=== PATIENT | female | born 1985 | race Caucasian/White ===

== ENCOUNTER → 2017-01-19 | Outpatient (REF) | payer BC ==
[~2017-01-19] MED LIST: IBUP80TA FT; PERCOCET PO; PRENTAB74 PO; TUMS500C PO
[2017-01-19 14:06] LABS: BASO % 0.3 % (0.0-1.0); EOS # 0.2 K/mm3 (0.0-0.50); EOS % 2.6 % (0.0-3.0); LARGE UNSTAINED CELL # 0.1 K/mm3 (0.0-0.4); LARGE UNSTAINED CELL % 1.2 % (0.0-4.0); LYMPH # 2.4 K/mm3 (1.5-4.5); LYMPH % 36.3 % (24.0-44.0); MEAN CORPUSCULAR HGB CONC 34.1 g/dl (32.0-36.5); MEAN CORPUSCULAR VOLUME 90.9 fl (80.0-96.0); MONO # 0.3 K/mm3 (0.0-0.8); NEUTROPHILS # 3.5 K/mm3 (1.8-7.7); NEUTROPHILS % 55.7 % (36.0-66.0); PLATELET COUNT, AUTOMATED 273 k/mm3 (150-450); RED CELL DISTRIBUTION WIDTH 12.7 % (11.5-14.5); WHITE BLOOD COUNT 6.4 K/mm3 (4.0-10.0)
[2017-01-19 14:28] LABS: ALBUMIN 3.5 GM/DL (3.2-5.2); ALBUMIN/GLOBULIN RATIO 0.97 (1.00-1.93); ALKALINE PHOSPHATASE 83 U/L (45-117); ALT/SGPT 32 U/L (12-78); ANION GAP 8 MEQ/L (8-16); AST/SGOT 17 U/L (15-37); BILIRUBIN,TOTAL 0.6 MG/DL (0.2-1.0); BLOOD UREA NITROGEN 13 MG/DL (7-18); CARBON DIOXIDE LEVEL 31 MEQ/L (21-32); CHLORIDE LEVEL 102 MEQ/L (98-107); CREATININE FOR GFR 0.77 MG/DL (0.55-1.02); GLOMERULAR FILTRATION RATE > 60.0 (>60); GLUCOSE, FASTING 75 MG/DL (70-105); SODIUM LEVEL 141 MEQ/L (136-145); TOTAL PROTEIN 7.1 GM/DL (6.4-8.2)
== END ==
LOC: M LAB REF 13:41
PROVIDERS: ATTEND Family Medicine
DX: R03.0 Elevated blood-pressure reading, without diagnosis of hypertension (principal); R94.6 Abnormal results of thyroid function studies

== ENCOUNTER → 2018-04-17 | Outpatient (REF) | payer BC ==
[2018-04-17 18:57] LABS: BASO % 0.1 % (0.0-1.0); EOS # 0.2 10^3/uL (0.0-0.50); EOS % 2.7 % (0.0-3.0); HEMATOCRIT 40.1 % (36.0-47.0); HEMOGLOBIN 12.9 g/dl (12.0-15.5); IMMATURE GRANULOCYTE % 0.1 % (0-3.0); LYMPH # 2.8 10^3/uL (1.5-4.5); LYMPH % 39.6 % (24.0-44.0); MEAN CORPUSCULAR HEMOGLOBIN 29.7 pg (27.0-33.0); MEAN CORPUSCULAR HGB CONC 32.2 g/dl (32.0-36.5); MEAN CORPUSCULAR VOLUME 92.4 fl (80.0-96.0); MONO # 0.4 10^3/uL (0.0-0.8); MONO % 5.9 % (0.0-5.0); NEUTROPHILS # 3.7 10^3/uL (1.8-7.7); NEUTROPHILS % 51.6 % (36.0-66.0); PLATELET COUNT, AUTOMATED 299 10^3/uL (150-450); RED BLOOD COUNT 4.34 10^6/uL (4.00-5.40); RED CELL DISTRIBUTION WIDTH 12.5 % (11.5-14.5); WHITE BLOOD COUNT 7.1 10^3/uL (4.0-10.0)
[2018-04-17 22:45] LABS: ALKALINE PHOSPHATASE 71 U/L (45-117); ALT/SGPT 29 U/L (12-78); ANION GAP 9 MEQ/L (8-16); AST/SGOT 14 U/L (7-37); BILIRUBIN,TOTAL 0.5 MG/DL (0.2-1.0); BLOOD UREA NITROGEN 15 MG/DL (7-18); CALCIUM LEVEL 9.1 MG/DL (8.5-10.1); CARBON DIOXIDE LEVEL 25 MEQ/L (21-32); CHLORIDE LEVEL 106 MEQ/L (98-107); CREATININE FOR GFR 0.79 MG/DL (0.55-1.30); FREE T4 0.93 NG/DL (0.76-1.46); GLOMERULAR FILTRATION RATE > 60.0 (>60); GLUCOSE, FASTING 84 MG/DL (70-100); POTASSIUM SERUM 4.2 MEQ/L (3.5-5.1); SODIUM LEVEL 140 MEQ/L (136-145); TOTAL PROTEIN 7.4 GM/DL (6.4-8.2); TRIGLYCERIDES LEVEL 168 MG/DL (<150)
[2018-04-18 00:05] LABS: ALBUMIN/GLOBULIN RATIO 1.18 (1.00-1.93); HDL CHOLESTEROL 54 MG/DL (>40)
[2018-04-18 00:50] LABS: CHOLESTEROL LEVEL 232 MG/DL (<200); CHOLESTEROL RISK RATIO 4.296 (<5); LDL CHOLESTEROL 144 MG/DL (<100); NON-HDL-C 178 MG/DL
[2018-04-18 01:24] LABS: ESTIMATED AVERAGE GLUCOSE 100 MG/DL (60-110); HEMOGLOBIN A1c 5.1 %
== END ==
LOC: M SFHCPLAZ 14:05
DX: Z13.220 Encounter for screening for lipoid disorders (principal); E66.9 Obesity, unspecified; G43.009 Migraine without aura, not intractable, without status migrainosus
CPT/HCPCS: 84443

== ENCOUNTER → 2018-10-05 | Outpatient (REF) | payer BC ==
[2018-10-10 08:06] LABS: HPV HYBRID CAPTURE II Negative (Negative)
== END ==
LOC: M LAB REF 13:13
PROVIDERS: ATTEND Advanced Practice Midwife
DX: Z12.4 Encounter for screening for malignant neoplasm of cervix (principal); N87.0 Mild cervical dysplasia
CPT/HCPCS: 87624; G0123

== ENCOUNTER → 2018-11-03 | Outpatient (REF) | payer BC ==
[2018-11-03 12:27] LABS: HEMOGLOBIN A1c 5.6 %
== END ==
LOC: M SFHCPLAZ 10:32
PROVIDERS: ATTEND Physician Assistant Medical
DX: G43.009 Migraine without aura, not intractable, without status migrainosus (principal)

== ENCOUNTER → 2018-11-07 | Outpatient (CLI) | payer BC ==
[~2018-11-07] MED LIST changes: +OXYC1TAB23 PO; -PERCOCET PO
--- NOTE | 2018-11-07 09:59 | REP ---
Duplex extremity venous ultrasound: Right lower extremity. History: Right ankle edema. Rule out DVT. Findings: The deep veins are anechoic and fully compressible from the groin to the popliteal fossa in the right lower extremity. Color flow imaging is homogeneous. Spectral Doppler interrogation demonstrates intact respiratory variation in flow and normal manual augmentation of flow. There is no evidence of deep vein thrombosis. Impression: Negative right lower extremity duplex venous ultrasound. No evidence of deep vein thrombosis. Electronically Signed by Reinaldo Spann MD 11/07/2018 09:50 A
== END ==
LOC: M RAD 09:29
PROVIDERS: ATTEND Physician Assistant Medical
DX: M25.471 Effusion, right ankle (principal)

== ENCOUNTER → 2019-03-13 | Outpatient (REF) | payer BC ==
[2019-03-13 14:24] LABS: ALBUMIN 3.8 GM/DL (3.2-5.2); ALT/SGPT 31 U/L (12-78); BILIRUBIN,TOTAL 0.6 MG/DL (0.2-1.0); BLOOD UREA NITROGEN 13 MG/DL (7-18); CALCIUM LEVEL 9.4 MG/DL (8.5-10.1); CARBON DIOXIDE LEVEL 28 MEQ/L (21-32); CHLORIDE LEVEL 105 MEQ/L (98-107); CREATININE FOR GFR 0.85 MG/DL (0.55-1.30); FREE T4 0.93 NG/DL (0.76-1.46); GLOMERULAR FILTRATION RATE > 60.0 (>60); GLUCOSE, FASTING 94 MG/DL (70-100); POTASSIUM SERUM 3.9 MEQ/L (3.5-5.1); SODIUM LEVEL 141 MEQ/L (136-145); TOTAL PROTEIN 7.4 GM/DL (6.4-8.2)
== END ==
LOC: M SFHCPLAZ 11:28
PROVIDERS: ATTEND Physician Assistant Medical
DX: F32.1 Major depressive disorder, single episode, moderate (principal)

== ENCOUNTER → 2019-07-16 | Outpatient (CLI) | payer BC ==
--- NOTE | 2019-07-16 13:59 | REPPI ---
REASON: Knee pain. COMPARISON: None. There is mild and medial compartmental marginal osteophytosis with slight medial compartmental narrowing. There is no acute fracture or destructive osseous lesion. IMPRESSION: Chronic changes as described above. Electronically Signed by Sid Jasso DO 07/16/2019 03:43 P
== END ==
LOC: M PLALAB 11:24
PROVIDERS: ATTEND Physician Assistant Medical
DX: M25.762 Osteophyte, left knee (principal)

== ENCOUNTER 2020-02-11 23:55 | Emergency (ER) | payer BC ==
[~2020-02-11] VITALS: Ht 165.1 cm; Wt 134.2 kg
[2020-02-12] MEDS ORDERED: AUGM875T28 PO (02:10)
[2020-02-12] MEDS ORDERED: IBUP80TA PO (02:10)
[2020-02-12] MEDS ORDERED: KETOROLAC 60MG 2ML VIAL IM ONE (02:15)
[2020-02-12] MEDS ORDERED: AUGMENTIN 875 MG TAB PO ONE (02:15)
[2020-02-12 02:34] VITALS: BP 144/88
== END 2020-02-12 02:35 | disposition home or self-care (01) ==
LOC: M ED 23:55
DX: K02.9 Dental caries, unspecified (principal); F41.9 Anxiety disorder, unspecified; F32.9 Major depressive disorder, single episode, unspecified
CPT/HCPCS: 96372; 99283; J1885

== ENCOUNTER → 2020-02-25 | Outpatient (REF) | payer BC ==
[~2020-02-25] MED LIST changes: +AUGM875T28 PO; +IBUP80TA PO
[2020-02-25 13:37] LABS: BASO % 0.2 % (0.0-1.0); EOS # 0.1 10^3/uL (0.0-0.5); EOS % 1.5 % (0.0-3.0); HEMATOCRIT 38.6 % (36.0-47.0); HEMOGLOBIN 12.7 g/dl (12.0-15.5); LYMPH # 2.9 10^3/uL (1.5-5.0); LYMPH % 33.6 % (24.0-44.0); MEAN CORPUSCULAR HEMOGLOBIN 30.5 pg (27.0-33.0); MEAN CORPUSCULAR HGB CONC 32.9 g/dl (32.0-36.5); MEAN CORPUSCULAR VOLUME 92.6 fl (80.0-96.0); MONO # 0.5 10^3/uL (0.0-0.8); MONO % 5.7 % (0.0-5.0); NEUTROPHILS % 58.4 % (36.0-66.0); PLATELET COUNT, AUTOMATED 273 10^3/uL (150-450); RED BLOOD COUNT 4.17 10^6/uL (4.00-5.40); WHITE BLOOD COUNT 8.6 10^3/uL (4.0-10.0)
[2020-02-25 14:05] LABS: ALBUMIN 3.7 GM/DL (3.2-5.2); ALT/SGPT 29 U/L (12-78); BILIRUBIN,TOTAL 0.5 MG/DL (0.2-1.0); BLOOD UREA NITROGEN 14 MG/DL (7-18); CALCIUM LEVEL 8.9 MG/DL (8.5-10.1); CARBON DIOXIDE LEVEL 31 MEQ/L (21-32); CHLORIDE LEVEL 104 MEQ/L (98-107); CHOLESTEROL LEVEL 242 MG/DL (<200); CHOLESTEROL RISK RATIO 4.172 (<5); FREE T4 0.93 NG/DL (0.76-1.46); GLOMERULAR FILTRATION RATE > 60.0 (>60); GLUCOSE, FASTING 87 MG/DL (70-100); HDL CHOLESTEROL 58 MG/DL (>40); LDL CHOLESTEROL 152 MG/DL (<100); NON-HDL-C 184 MG/DL; POTASSIUM SERUM 4.3 MEQ/L (3.5-5.1); SODIUM LEVEL 141 MEQ/L (136-145); TOTAL PROTEIN 7.3 GM/DL (6.4-8.2); TRIGLYCERIDES LEVEL 162 MG/DL (<150)
[2020-02-25 14:10] LABS: TOTAL 25(OH) VITAMIN D 20.6 NG/ML (30.0-100.0)
[2020-02-25 14:11] LABS: HEMOGLOBIN A1c 5.3 %
== END ==
LOC: M SFHCPLAZ 10:52
PROVIDERS: ATTEND Physician Assistant Medical
DX: L71.9 Rosacea, unspecified (principal); E66.9 Obesity, unspecified; E28.2 Polycystic ovarian syndrome; Z13.220 Encounter for screening for lipoid disorders

== ENCOUNTER 2020-09-02 19:32 | Emergency (ER) | payer BC ==
[~2020-09-02] VITALS: Ht 165.1 cm; Wt 136.9 kg
[2020-09-02] MEDS ORDERED: LABE100T4 PO (19:45)
[2020-09-02] MEDS ORDERED: METF-838 PO (19:45)
[2020-09-02] MEDS ORDERED: ESCI10TA16 PO (19:45)
--- OUTSIDE RECORDS SUMMARY | 2020-09-02 21:13 | CCD ---
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 Role Phone Jessie Llamas Unavailable PROBLEMS Type Condition ICD9-CM Code IHY50-JI Code Onset Dates Condition S tatus SNOMED Code Notes Problem Migraine without aura and without status migrain osus, not intractable G43.009 Active 517997422 Problem PCOS (polycystic ovarian syndrome) E28.2 Activ e 01470367 Problem Cervical cancer screening Z12.4 Active 027329 001 Problem Obesity (BMI 30-39.9) E66.9 Active 505507443 Problem Vitamin D insufficiency E55.9 Active 75637214 Problem Rosacea L71.9 Active 025290676 Problem Mixed hyperlipidemia E78.2 Active 905220954 Problem Lipid screening Z13.220 Active 540725426 Problem Current moderate episode of major depressive disorder, unspecified whether recurrent F32.1 Active 33014243 Problem Screening for colon cancer Z12.11 Active 78304 8001 Problem Breast cancer screening Z12.39 Active 95277962 1 Problem Carpal tunnel syndrome of right wrist G56.01 Ac tive [id number] ALLERGIES No Known Allergies ENCOUNTERS from 1985 to 2020-06-03 Encounter Location Date Provider Diagnosis [address] [address] Feb, Jessie Llamas Carpal tunnel syndrome of right wrist G5 6.01 ; PCOS (polycystic ovarian syndrome) E28.2 ; Current moderate episode of major depressive disorder, unspecified whether recurrent F32.1 ; Arthralgia of knee, left M25.562 ; Cough R05 ; Breast cancer screening Z12.39 ; Screening for colon cancer Z12.11 ; Rosacea L71.9 ; Obesity (BMI 30-39.9) E66.9 ; Lipid screening Z13.220 ; Vitamin D insufficiency E55.9 and Mixed hyperlipidemia E78.2 IMMUNIZATIONS No Information SOCIAL HISTORY Tobacco Use: Social History Observation Description Date Details (start date - stop date) Never Smoker Sex Assigned At : Social History Observation Description Sex Assigned At Unknown Education: Question Answer Notes Level of Education: Finished College Audit Question Answer Notes Total Score: 1 Interpretation: Alcohol Education Language: Question Answer Notes Languages spoken: Croatian Rastafari: Question Answer Notes Rastafari 08 Jew Sexual Hx: Question Answer Notes Had sex in the last 12 months (vaginal, oral, or anal)? Yes LMP: 04/08/18 Have you ever had an STD? No Prevention Strategies discussed: Other with Men only Use protection? No Drug and Alcohol Question Answer Notes Total Score: 0 Interpretation: No problems reported Alcohol Screening: Question Answer Notes Did you have a drink containing alcohol in the past year? Ye s Points 1 Interpretation Negative How often did you have six or more drinks on one occas ion in the past year? Never (0 points) How many drinks did you have on a typica l day when you were drinking in the past year? 1 or 2 (0 points) How often did you have a drink containing alcohol in t he past year? Monthly or less (1 point) Tobacco Use: Question Answer Notes Are you a: never smoker REASON FOR REFERRAL No Information VITAL SIGNS Weight 293.2 lbs Feb, Height 65 in Feb, BMI 48.79 kg/m2 Feb, Heart Rate 84 /min Feb, Respiratory Rate 18 /min Feb, Temperature 97.6 degrees Fahrenheit Feb, Oximetry 98% Ra Feb, Blood pressure systolic 116 mm Hg Feb, Blood pressure diastolic 84 mm Hg Feb, MEDICATIONS Medication SIG (Take, Route, Frequency, Duration) Start Date En d Date Status May Have - cockup wrist splint for rt. hand topically before bedtime for 999 days Feb, Active May Have - compression stockings 15mmhg topically Daily for 30 da ys Active Tylenol 8 Hour 650 MG 2 tablets as needed Orally every 8 hrs Active Ibuprofen 400 MG 1 tablet with food or milk as needed Ora lly Three times a day Active Metrogel 1 % 1 application to affected area Externall y Once a day for 30 day(s) Active MetFORMIN HCl ER 500 MG 1 tablet with evening meal O rally Once a day for 30 day(s) Active Vitamin D 25 MCG (1000 UT) 1 tablet Orally Once a day for 30 day(s) Feb, Active Labetalol HCl 100 MG 1 tablet Orally Twice a day for 90 day(s) A 2018 Active Lexapro 10 MG 1 tablet Orally Once a day for 30 day(s) Active PROCEDURES No Information RESULTS REASON FOR VISIT follow up - r/s of cx November appt MEDICAL (GENERAL) HISTORY Type Description Date Medical History migraines Medical History Elevated bp Medical History Depression Medical History PCOS Surgical History 2012 Surgical History 1 wisdom tooth extracted Hospitalization History surgery related Goals Section No Information Health Concerns No Information MEDICAL EQUIPMENT No Information MENTAL STATUS No Information FUNCTIONAL STATUS No Information ASSESSMENTS Encounter Date Diagnosis Notes Feb, PCOS (polycystic ovarian syndrome) (ICD- 10 - E28.2) Feb, Carpal tunnel syndrome of right wrist (I CD-10 - G56.01) Feb, Mixed hyperlipidemia (ICD-10 - E78.2) Feb, Arthralgia of knee, left (ICD-10 - M25.5 62) Feb, Current moderate episode of major depressive disorder, unspecified whether recurrent (ICD-10 - F32.1) Feb, Obesity (BMI 30-39.9) (ICD-10 - E66.9) Feb, Vitamin D insufficiency (ICD-10 - E55.9) Feb, Lipid screening (ICD-10 - Z13.220) Feb, Breast cancer screening (ICD-10 - Z12.39 ) Feb, Cough (ICD-10 - R05) Feb, Rosacea (ICD-10 - L71.9) Feb, Screening for colon cancer (ICD-10 - Z12 .11) PLAN OF TREATMENT Medication Medication Name Sig Start Date Stop Date May Have - cockup wrist splint for rt. 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 up 5lbs. 293 t odayn was 288 Vitamin D insufficiency start over the c ounter vit. D7 Vit. D 20.6 Mixed hyperlipidemia Will need to adjust diet., may need statin02/2020 FWG749/HDL 58, TG 162 Next Appt Details 4 Months f/u c SS, BW today Reason: Provider Name:Jessie Llamas, 2019-08 09:30:00 AM, [address] [place], [address], Insurance Providers Payer Name Payer Address Payer Phone Insured Name Patient Relati onship to Insured Coverage Start Date Coverage End Date [facility] [id number] [employer] [facility] ([place], [place]) [id number] [address]
--- OUTSIDE RECORDS SUMMARY | 2020-09-02 21:13 | CCD ---
Author Author [facility] Organization [facility] Address Unknown Phone Unavailable Support Name Relationship Address Phone SSV* Next Of Kin [address] [place] [id number] [facility] Next Of Kin [address] [place] [address] [place] [address] [facility]* [place] [address] ANTHONY OBRIEN Next Of Kin [address] [place], [place] [id number] CLAUDINE OBRIEN Next Of Kin [address] [place] [address] Re-disclosure Warning The records that you are about to access may contain information from federally-assisted alcohol or drug abuse programs. If such information is present, then the following federally mandated warning applies: This information has been disclosed to you from records protected by federal confidentiality rules (42 CFR part 2). The federal rules prohibit you from making any further disclosure of this information unless further disclosure is expressly permitted by the written consent of the person to whom it pertains or as otherwise permitted by 42 CFR part 2. A general authorization for the release of medical or other information is NOT sufficient for this purpose. The Federal rules restrict any use of the information to criminally investigate or prosecute any alcohol or drug abuse patient.The records that you are about to access may contain highly sensitive health information, the redisclosure of which is protected by Article 27-F of the [place] State Public Health law. If you continue you may have access to information: Regarding HIV / AIDS; Provided by facilities licensed or operated by the [facility] Office of Mental Health; or Provided by the [facility] Office for People With Developmental Disabilities. If such information is present, then the following [facility] mandated warning applies: This information has been disclosed to you from confidential records which are protected by state law. State law prohibits you from making any further disclosure of this information without the specific written consent of the person to whom it pertains, or as otherwise permitted by law. Any unauthorized further disclosure in violation of state law may result in a fine or [place] [facility] sentence or both. A general authorization for the release of medical or other information is NOT sufficient authorization for further disc losure. Family History Family Member Name Family Member Gender Family Member Status Date o f Status Description Data Source(s) Unknown Unknown Problem [facility] Unknown Male Problem MEDENT ([facility] Unknown Unknown Problem MEDENT ([facility]) Encounters Encounter Providers Location Date Indications Data Source(s ) Outpatient [address] [place] [phone] 02/25/2020 12:00:00 AM EDT eCW1 ([facility]) [address] [address] 01/18/2020 12:00:00 AM EDT eCW1 ([facility] [address] [place] [address] 12/18/2019 12:00:00 AM EDT eCW1 ([facility]) [address] [place] [address] 12/18/2019 12:00:00 AM EDT eCW1 ([facility]) [address] [place] [address] 11/12/2019 12:00:00 AM EDT eCW1 ([facility]) [address] [place] [address] 11/09/2019 12:00:00 AM EDT eCW1 ([facility]) [address] [place] [address] 08/13/2019 12:00:00 AM EST eCW1 ([facility]) [address] [address] 07/16/2019 12:00:00 AM EST eCW1 ([facility]) Medications Medication Brand Name Start Date Product Form Dose Route Admi nistrative Instructions Pharmacy Instructions Status Indications Reaction Description Data Source(s) Cholecalciferol 1000 UNT Oral Tablet Vitamin D 25 MCG (1000 UT) Vitamin D 25 MCG (1000 UT) 02/25/2020 12:00:00 AM EDT 1.0 {tablet} ac tive Vitamin D 25 MCG (1000 UT) eCW1 ([facility]) May Have - UNK 02/25/2020 12:00:00 AM EDT active May Have - eCW1 ([facility]) 5-325 mg 02/15/2020 12:00:00 AM EDT tablet 15 TAKE ONE TABLET BY MOUTH EVERY 6 HOURS NEEDED FOR PAIN * MAXIMUM DAILY DOSE = 3 TAKE ONE TABLET BY MOUTH EVERY 6 HOURS NEEDED FOR PAIN * MAXIMUM DAILY DOSE = 3 SOLD: 02/15/2020 [facility] 500 mg 02/15/2020 12:00:00 AM EDT tablet 28 TAKE ONE TABLET BY MOUTH EVERY 6 HOURS UNTIL GONE TAKE ONE TABLET BY MOUTH EVERY 6 HOURS UNTIL GONE SOLD : 02/15/2020 [facility] 800 mg 02/12/2020 12:00:00 AM EDT tablet 30 TAKE ONE TABLET BY MOUTH EVERY 6 HOURS NEEDED FOR PAIN TAKE ONE TABLET BY MOUTH EVERY 6 HOURS A S NEEDED FOR PAIN SOLD: 02/15/2020 [facility] 875-125 mg 02/12/2020 12:00:00 AM EDT tablet 20 TAKE ONE TABLET BY MOUTH TWO TIMES A DAY TAKE ONE TABLET BY MOUTH TWO TIMES A DAY SOLD: 02/15/2020 [facility] 500 mg 12/18/2019 12:00:00 AM EDT tablet extended release 24 hr 30 TAKE ONE TABLET BY MOUTH EVERY DAY WITH EVENING MEAL TAKE ONE TABLET BY MOUTH EVERY DAY WITH EVENING MEAL SOLD: 12/18/2019 [facility] 500 mg 12/18/2019 12:00:00 AM EDT tablet extended release 24 hr 30 TAKE ONE TABLET BY MOUTH EVERY DAY WITH EVENING MEAL TAKE ONE TABLET BY MOUTH EVERY DAY WITH EVENING MEAL SOLD: 03/10/2020 [facility] 100 mg 12/18/2019 12:00:00 AM EDT tablet 60 TAKE ONE TABLET BY MOUTH TWICE A DAY TAKE ONE TABLET BY MOUTH TWICE A DAY SOLD: 12/18/2019 [facility] Escitalopram 10 MG Oral Tablet ESCITALOPRAM OXALATE 04/13/2019 1 2:00:00 AM EDT tablet 30 TAKE ONE TABLET BY MOUTH EVERY D AY TAKE ONE TABLET BY MOUTH EVERY DAY SOLD: 02/15/2020 [facility] Insurance Providers Payer name Policy type / Coverage type Policy ID Covered republican ID Covered republican's relationship to helton Policy [place] Plan Information BCBS OF [facility] 306/806 [id number] SP [id number] [facility]/806 [id number] SP [id number] ANSI-Commercial [id number] BCBS [place] [facility] 302/307 [id number] SP [id number] ANSI-Commercial [id number] BCBS [facility] O 302/307 [id number] SP [id number] [facility] Health Maintenance Organization (HMO) [id number] Self [id number] [facility] [employer] Maintenance Organization (HMO) [id number] Self [id number] [facility] [employer] Maintenance Organization (HMO) [id number] Self [id number] [facility] Health Maintenance Organization (HMO) [id number] Self [id number] ANSI-Commercial [id number] ANSI-Commercial [id number] ANSI-Commercial [id number] BCBS JANET O [id number] SP [id number] [employer] [id number] SP [id number] BS Of [facility] Organization (O) [id number] Self [id number] [employer] [id number] SP [id number] BS Of [facility] Organization (O) [id number] Self [id number] BS Of [facility] Organization (O) [id number] Self [id number] BS Of [facility] Organization (O) [id number] Self [id number] [employer] [id number] Self [id number] [employer] Self O BLUE [id number] SP [id number] Problems, Conditions, and Diagnoses Code Display Name Description Problem Type Effective Dates Data Source(s) G56.01 732820362967172 Carpal tunnel syndrome of right wrist Problem 02/25/2020 12:00:00 AM EDT eCW1 ([facility]) E78.2 [id number] Mixed hyperlipidemia Problem 02/25/2020 12:0 0:00 AM EDT eCW1 ([facility]) E55.9 [id number] Vitamin D insufficiency Problem 02/25/2020 1 2:00:00 AM EDT eCW1 ([facility]) Z12.39 [id number] Breast cancer screening Problem 08/13/2019 1 2:00:00 AM EST eCW1 ([facility]) Z12.11 [id number] Screening for colon cancer Problem 0 12:00:00 AM EST eCW1 ([facility]) Z12.39 [id number] Breast cancer screening Problem 08/13/2019 1 2:00:00 AM EST eCW1 ([facility]) Z12.11 [id number] Screening for colon cancer Problem 0 12:00:00 AM EST eCW1 ([facility]) Results ID Date Data Source [id number] 08/26/2020 02:59:00 PM EST [facility] Name Value Range Interpretation Code Description Data Pati rce(s) Supporting Document(s) SARS coronavirus 2 RNA Not Detected [facility] [place] This lab was ordered by [facility] and reported by [facility]. ID Date Data Source [id number] 08/19/2020 11:30:00 AM EST [facility] Name Value Range Interpretation Code Description Data Pati rce(s) Supporting Document(s) SARS coronavirus 2 RNA Not Detected [facility] [place] This lab was ordered by [facility] and reported by [facility]. ID Date Data Source [id number] 08/12/2020 02:00:00 PM EST [facility] Name Value Range Interpretation Code Description Data Pati rce(s) Supporting Document(s) SARS coronavirus 2 RNA Not Detected [facility] [place] This lab was ordered by [facility] and reported by [facility]. ID Date Data Source [id number] 08/05/2020 10:36:00 AM EST [facility] Name Value Range Interpretation Code Description Data Pati rce(s) Supporting Document(s) SARS coronavirus 2 RNA [facility] This lab was ordered by [facility] and reported by [facility]. ID Date Data Source [id number] 07/29/2020 02:31:00 PM EST [facility] Name Value Range Interpretation Code Description Data Pati rce(s) Supporting Document(s) SARS coronavirus 2 RNA [facility] This lab was ordered by [facility] and reported by [facility]. ID Date Data Source [id number] 07/22/2020 09:15:00 AM EST [facility] Name Value Range Interpretation Code Description Data Pati rce(s) Supporting Document(s) SARS coronavirus 2 RNA [facility] This lab was ordered by [facility] and reported by [facility]. ID Date Data Source [id number] 07/15/2020 02:37:00 PM EST [facility] Name Value Range Interpretation Code Description Data Pati rce(s) Supporting Document(s) SARS coronavirus 2 RNA [facility] This lab was ordered by [facility] and reported by [facility]. ID Date Data Source [id number] 07/08/2020 02:00:00 PM EST [facility] Name Value Range Interpretation Code Description Data Pati rce(s) Supporting Document(s) SARS coronavirus 2 RNA [facility] This lab was ordered by [facility] and reported by [facility]. ID Date Data Source [id number] 07/01/2020 02:45:00 PM EST [facility] Name Value Range Interpretation Code Description Data Pati rce(s) Supporting Document(s) SARS coronavirus 2 RNA [facility] This lab was ordered by [facility] and reported by [facility]. ID Date Data Source [id number] 06/24/2020 11:42:00 AM EST [facility] Name Value Range Interpretation Code Description Data Pati rce(s) Supporting Document(s) SARS coronavirus 2 RNA [facility] This lab was ordered by [facility] and reported by [facility]. ID Date Data Source [id number] 06/17/2020 12:22:00 PM EST [facility] Name Value Range Interpretation Code Description Data Pati rce(s) Supporting Document(s) SARS coronavirus 2 RNA [facility] This lab was ordered by [facility] and reported by [facility]. ID Date Data Source [id number] 06/10/2020 02:01:00 PM EST [facility] Name Value Range Interpretation Code Description Data Pati rce(s) Supporting Document(s) SARS coronavirus 2 RNA [facility] This lab was ordered by [facility] and reported by [facility]. ID Date Data Source [id number] 06/03/2020 03:13:00 PM EDT [facility] Name Value Range Interpretation Code Description Data Pati rce(s) Supporting Document(s) SARS coronavirus 2 RNA [facility] This lab was ordered by [facility] and reported by [facility]. ID Date Data Source [id number] 05/27/2020 03:30:00 PM EDT [facility] Name Value Range Interpretation Code Description Data Pati rce(s) Supporting Document(s) SARS coronavirus 2 RNA [facility] This lab was ordered by [facility] and reported by [facility]. ID Date Data Source [id number] 05/20/2020 12:00:00 PM EDT [facility] Name Value Range Interpretation Code Description Data Pati rce(s) Supporting Document(s) SARS coronavirus 2 RNA [facility] This lab was ordered by [facility] and reported by [facility]. ID Date Data Source [id number] 05/13/2020 02:30:00 PM EDT [facility] Name Value Range Interpretation Code Description Data Pati rce(s) Supporting Document(s) SARS coronavirus 2 RNA [facility] This lab was ordered by [facility] and reported by [facility]. ID Date Data Source [id number] 05/06/2020 02:20:00 PM EDT [facility] Name Value Range Interpretation Code Description Data Pati rce(s) Supporting Document(s) SARS coronavirus 2 RNA [facility] This lab was ordered by [facility] and reported by [facility]. ID Date Data Source [id number] 04/29/2020 12:43:00 PM EDT [facility] Name Value Range Interpretation Code Description Data Pati rce(s) Supporting Document(s) SARS coronavirus 2 RNA [facility] This lab was ordered by [facility] and reported by [facility]. ID Date Data Source [id number] 04/17/2020 01:00:00 PM EDT [facility] Name Value Range Interpretation Code Description Data Pati rce(s) Supporting Document(s) SARS coronavirus 2 RNA [facility] This lab was ordered by [facility] and reported by [facility]. ID Date Data Source [id number] 04/01/2020 01:45:00 PM EDT [facility] Name Value Range Interpretation Code Description Data Pati rce(s) Supporting Document(s) SARS coronavirus 2 RNA [facility] This lab was ordered by [facility] and reported by [facility]. ID Date Data Source [id number] 02/26/2020 03:32:00 PM EDT [facility] Name Value Range Interpretation Code Description Data Pati rce(s) Supporting Document(s) SARS coronavirus 2 RNA [facility] This lab was ordered by [facility] and reported by [facility]. ID Date Data Source [id number] 02/25/2020 08:04:10 AM EDT eCW1 ([facility]) Name Value Range Interpretation Code Description Data Pati rce(s) Supporting Document(s) 20.6 eCW1 ([facility]) ID Date Data Source CBC with Differential 02/25/2020 08:04:03 AM EDT eCW1 ([facility]) Name Value Range Interpretation Code Description Data Pati rce(s) Supporting Document(s) 4.17 RED BLOOD COUNT eCW1 ([facility]) 8.6 WHITE BLOOD COUNT eCW1 ([facility]) 38.6 HEMATOCRIT eCW1 ([facility]) 92.6 MEAN CORPUSCULAR VOLUME eCW1 ( [facility]) 30.5 MEAN CORPUSCULAR HEMOGLOBIN eC W1 ([facility]) 12.7 HEMOGLOBIN eCW1 ([facility]) 32.9 MEAN CORPUSCULAR HGB CONC eCW1 ([facility]) 273 PLATELET COUNT, AUTOMATED eCW1 ([facility]) 12.3 RED CELL DISTRIBUTION WIDTH eC W1 ([facility]) 1.5 EOS % eCW1 ([facility]) 58.4 NEUTROPHILS % eCW1 ([facility]) 33.6 LYMPH % eCW1 ([facility]) 5.7 MONO % eCW1 ([facility]) 0.5 MONO # eCW1 ([facility]) 0.2 BASO % eCW1 ([facility]) 5.0 NEUTROPHILS # eCW1 ([facility]) 2.9 LYMPH # eCW1 ([facility]) 0.0 BASO # eCW1 ([facility]) 0.1 EOS # eCW1 ([facility]) ID Date Data Source [id number] 02/25/2020 08:03:57 AM EDT eCW1 ([facility]) Name Value Range Interpretation Code Description Data Pati rce(s) Supporting Document(s) Hemoglobin A1c/Hemoglobin.total in Blood 5.3 HEMOGLOBIN A1c eCW1 ([facility]) ID Date Data Source LIPID PANEL (CARDIAC RISK) 02/25/2020 08:03:52 AM EDT eCW1 ( [facility]) Name Value Range Interpretation Code Description Data Pati rce(s) Supporting Document(s) Cholesterol in HDL [Moles/volume] in Serum or Plasma 58 HDL CHOLESTEROL eCW1 ([facility]) Triglyceride [Mass/volume] in Serum or Plasma by calculation 162 TRIGLYCERIDES LEVEL eCW1 ([facility]) Cholesterol [Moles/volume] in Serum or Plasma 242 CHOLESTEROL LEVEL eCW1 ([facility]) Cholesterol in LDL [Mass/volume] in Serum or Plasma by calculation 152 LDL CHOLESTEROL eCW1 ([facility]) 184 NON-HDL-C eCW1 ([facility]) 4.172 CHOLESTEROL RISK RATIO eCW1 ([facility]) ID Date Data Source FREE T4 & TSH PANEL 02/25/2020 08:03:45 AM EDT eCW1 ([facility]) Name Value Range Interpretation Code Description Data Pati rce(s) Supporting Document(s) 0.93 FREE T4 eCW1 ([facility]) 1.710 THYROID STIMULATING HORMONE eC W1 ([facility]) ID Date Data Source Comprehensive Metabolic Profile (CMP) 02/25/2020 08:03:39 AM EDT eCW1 ([facility]) Name Value Range Interpretation Code Description Data Pati rce(s) Supporting Document(s) 87 GLUCOSE, FASTING eCW1 ([facility]) > 60.0 GLOMERULAR FILTRATION RATE eCW 1 ([facility]) 141 SODIUM LEVEL eCW1 ([facility]) 0.80 CREATININE FOR GFR eCW1 ([facility]) 14 BLOOD UREA NITROGEN eCW1 ([facility]) 8.9 CALCIUM LEVEL eCW1 ([facility]) 31 CARBON DIOXIDE LEVEL eCW1 ([facility]) 104 CHLORIDE LEVEL eCW1 ([facility]) 4.3 POTASSIUM SERUM eCW1 ([facility]) 16 AST/SGOT eCW1 ([facility]) 68 ALKALINE PHOSPHATASE eCW1 ([facility]) 29 ALT/SGPT eCW1 ([facility]) 7.3 TOTAL PROTEIN eCW1 ([facility]) 3.7 ALBUMIN eCW1 ([facility]) 0.5 BILIRUBIN,TOTAL eCW1 ([facility]) 1.0 ALBUMIN/GLOBULIN RATIO eCW1 ([facility]) ID Date Data Source [id number] 02/19/2020 03:49:00 PM EDT [facility] Name Value Range Interpretation Code Description Data Pati rce(s) Supporting Document(s) SARS coronavirus 2 RNA [facility] This lab was ordered by [facility] and reported by [facility]. ID Date Data Source [id number] 02/12/2020 03:19:00 PM EDT [facility] Name Value Range Interpretation Code Description Data Pati rce(s) Supporting Document(s) SARS coronavirus 2 RNA [facility] This lab was ordered by [facility] and reported by [facility]. ID Date Data Source [id number] 02/05/2020 05:30:00 AM EDT [facility] Name Value Range Interpretation Code Description Data Pati rce(s) Supporting Document(s) SARS CORONAVIRUS 2 RNA [facility] This lab was ordered by [facility] and reported by [facility]. ID Date Data Source [id number] 01/29/2020 05:30:00 AM EDT [facility] Name Value Range Interpretation Code Description Data Pati rce(s) Supporting Document(s) SARS CORONAVIRUS 2 RNA [facility] This lab was ordered by [facility] and reported by [facility]. ID Date Data Source [id number] 01/22/2020 11:49:00 AM EDT [facility] Name Value Range Interpretation Code Description Data Pati rce(s) Supporting Document(s) SARS CORONAVIRUS 2 RNA [facility] This lab was ordered by [facility] and reported by [facility]. ID Date Data Source [id number] 01/15/2020 01:20:00 PM EDT [facility] Name Value Range Interpretation Code Description Data Pati rce(s) Supporting Document(s) SARS CORONAVIRUS 2 RNA [facility] This lab was ordered by [facility] and reported by [facility]. ID Date Data Source [id number] 01/11/2020 02:07:00 PM EDT [facility] Name Value Range Interpretation Code Description Data Pati rce(s) Supporting Document(s) SARS CORONAVIRUS 2 RNA [facility] This lab was ordered by [facility] and reported by [facility]. ID Date Data Source [id number] 01/08/2020 03:32:00 PM EDT [facility] Name Value Range Interpretation Code Description Data Pati rce(s) Supporting Document(s) SARS CORONAVIRUS 2 RNA [facility] This lab was ordered by [facility] and reported by [facility]. ID Date Data Source [id number] 01/04/2020 03:09:00 PM EDT [facility] Name Value Range Interpretation Code Description Data Pati rce(s) Supporting Document(s) SARS CORONAVIRUS 2 RNA [facility] This lab was ordered by [facility] and reported by [facility]. ID Date Data Source [id number] 01/02/2020 01:00:00 PM EDT [facility] Name Value Range Interpretation Code Description Data Pati rce(s) Supporting Document(s) SARS CORONAVIRUS 2 RNA [facility] This lab was ordered by [facility] and reported by [facility]. ID Date Data Source [id number] 12/27/2019 03:06:00 PM EDT [facility] Name Value Range Interpretation Code Description Data Pati rce(s) Supporting Document(s) SARS CORONAVIRUS 2 RNA [facility] This lab was ordered by [facility] and reported by [facility]. ID Date Data Source [id number] 12/24/2019 05:30:00 AM EDT [facility] Name Value Range Interpretation Code Description Data Pati rce(s) Supporting Document(s) SARS CORONAVIRUS 2 RNA [facility] This lab was ordered by [facility] and reported by [facility]. Procedure Social History Code Duration Value Status Description Data Source(s ) Smoking 02/25/2020 12:00:00 AM EDT Never Smoker completed Never S harmeet eCW1 ([facility]) Vital Signs ID Date Data Source UNK Name Value Range Interpretation Code Description Data Source(s) Diastolic blood pressure 84 mm[Hg] 84 mm[Hg] eCW1 ([facility]) Systolic blood pressure 116 mm[Hg] 116 mm[Hg] e CW1 ([facility]) Body temperature 97.6 [degF] 97.6 [degF] eCW1 ( [facility]) Respiratory rate 18 /min 18 /min eCW1 ([facility]) Heart rate 84 /min 84 /min eCW1 ([facility]) Body mass index (BMI) [Ratio] 48.79 kg/m2 48.79 kg/m2 eCW1 ([facility]) Body height 65 [in_i] 65 [in_i] eCW1 ([facility]) Body weight 293.2 [lb_av] 293.2 [lb_av] eCW1 ([facility]) Diastolic blood pressure 80 mm[Hg] 80 mm[Hg] eCW1 ([facility]) Systolic blood pressure 114 mm[Hg] 114 mm[Hg] e CW1 ([facility]) Body temperature 98.0 [degF] 98.0 [degF] eCW1 ( [facility]) Respiratory rate 17 /min 17 /min eCW1 ([facility]) Heart rate 94 /min 94 /min eCW1 ([facility]) Body mass index (BMI) [Ratio] 47.02 kg/m2 47.02 kg/m2 eCW1 ([facility]) Body height 65 [in_us] 65 [in_us] eCW1 ([facility]) Body weight Measured 282.6 [lb_av] 282.6 [lb_av ] eCW1 ([facility]) Diastolic blood pressure 80 mm[Hg] 80 mm[Hg] eCW1 ([facility]) Systolic blood pressure 128 mm[Hg] 128 mm[Hg] e CW1 ([facility]) Body temperature 97.5 [degF] 97.5 [degF] eCW1 ( [facility]) Respiratory rate 18 /min 18 /min eCW1 ([facility]) Heart rate 95 /min 95 /min eCW1 ([facility]) Body mass index (BMI) [Ratio] 46.82 kg/m2 46.82 kg/m2 eCW1 ([facility]) Body height 65 [in_us] 65 [in_us] eCW1 ([facility]) Body weight Measured 281.4 [lb_av] 281.4 [lb_av ] eCW1 ([facility]) Patient Treatment Plan of Care Planned Activity Planned Date Details Description Data Source (s) Cholecalciferol 1000 UNT Oral Tablet 02/25/2020 12:00:00 AM EDT eCW1 ([facility]) December Have - 02/25/2020 12:00:00 AM EDT e CW1 ([facility])
--- OUTSIDE RECORDS SUMMARY | 2020-09-02 21:18 | CCD ---
Author Author [facility] Organization [facility] Address Unknown Phone Unavailable Support Name Relationship Address Phone SSV* Next Of Kin [address] [place] [id number] [facility] Next Of Kin [address] [place] [address] [place] [address] RUST* [place] [address] ANTHONY OBRIEN Next Of Kin [address] [place], [place] [id number] CLAUDINE OBRIEN Next Of Yonny [address] [place] [address] Re-disclosure Warning The records that you are [...] is protected by Article 27-F of the [place] State Public Health law. If you continue you may have access to information: Regarding HIV / AIDS; Provided by facilities licensed or operated by the [facility] Office of Mental Health; or Provided by the [facility] Office for People With Developmental Disabilities. If such information is present, then the following [facility] mandated warning applies: This information has [...] law may result in a fine or group home sentence or both. A general authorization for the release of medical or other information is NOT sufficient authorization for further disc losure. Family History Family Member Name Family Member Gender Family Member Status Date o f Status Description Data Source(s) Unknown Unknown Problem [facility] Unknown Male Problem MEDENT ([facility] Unknown Unknown Problem MEDENT ([facility]) Encounters Encounter Providers Location Date Indications Data Source(s ) Outpatient [address] [place] [phone] 02/25/2020 12:00:00 AM EDT eCW1 ([facility]) [address] [address] 01/18/2020 12:00:00 AM EDT eCW1 ([facility]) [address] [place] [address] 12/18/2019 12:00:00 AM EDT eCW1 ([facility]) [address] [place] [address] 12/18/2019 12:00:00 AM EDT eCW1 ([facility]) [address] [place] [address] 11/12/2019 12:00:00 AM EDT eCW1 ([facility]) [address] [place] [address] 11/09/2019 12:00:00 AM EDT eCW1 ([facility]) [address] [place] [address] 08/13/2019 12:00:00 AM EST eCW1 ([facility]) [address] [place] [address] 07/16/2019 12:00:00 AM EST eCW1 ([facility]) Medications Medication Brand Name Start Date Product Form Dose Route Admi nistrative Instructions Pharmacy Instructions Status Indications Reaction Description Data Source(s) Cholecalciferol 1000 UNT Oral Tablet Vitamin D 25 MCG (1000 UT) Vitamin D 25 MCG (1000 UT) 02/25/2020 12:00:00 AM EDT 1.0 {tablet} ac tive Vitamin D 25 MCG (1000 UT) eCW1 ([facility]) May Have - UNK 02/25/2020 12:00:00 AM EDT active May Have - eCW1 ([facility]) 5-325 mg 02/15/2020 12:00:00 AM EDT [...] type / Coverage type Policy ID Covered democrat ID Covered democrat's relationship to helton Policy [place] Plan Information [employer] [place] [facility] 306/806 [id number] SP [id number] [employer] [place] WAT[place] 306/806 [id number] SP [id number] ANSI-Commercial [id number] [place] O 302/307 [id number] SP [id number] ANSI-Commercial [id number] [place] O 302/307 [id number] SP [id number] [facility] Health Maintenance Organization (HMO) [id number] Self [id number] [facility] Maintenance Organization (HMO) [id number] Self [id number] [facility] Maintenance Organization (HMO) [id number] Self [id number] [facility] Maintenance Organization (HMO) [id number] Self [id number] ANSI-Commercial [id number] ANSI-Commercial [id number] ANSI-Commercial [id number] BCBS JANET HMO [id number] SP [id number] [employer] PLAN [id number] SP [id number] BS Of [facility] Organization (O) [id number] Self [id number] [employer] PL[employer] [id number] SP [id number] BS Of [facility] Organization (O) [id number] Self [id number] BS Of [facility] Organization (O) [id number] Self [id number] BS Of [facility] Organization (O) [id number] Self [id number] [employer] [id number] Self [id number] [employer] Self O BLUE [id number] Problems, Conditions, and Diagnoses Code Display Name Description Problem Type Effective Dates Data Source(s) G56.01 [id number] Carpal tunnel syndrome of right wrist Problem 02/25/2020 12:00:00 AM EDT eCW1 ([facility]) E78.2 [id number] Mixed hyperlipidemia Problem 02/25/2020 12:0 0:00 AM EDT eCW1 ([facility]) E55.9 [id number] Vitamin D insufficiency Problem 02/25/2020 1 2:00:00 AM EDT eCW1 ([facility]) Z12.39 [id number] Breast cancer screening Problem 08/13/2019 1 2:00:00 AM EST eCW1 ([facility]) Z12.11 [id number] Screening for colon cancer Problem 0 12:00:00 AM EST eCW1 ([facility]) Z12.39 [id number] Breast cancer screening Problem 08/13/2019 1 2:00:00 AM EST eCW1 ([facility]) Z12.11 [id number] Screening for colon cancer Problem 0 12:00:00 AM EST eCW1 ([facility]) Results ID Date Data Source [id number] 08/26/2020 02:59:00 PM EST [facility] Name Value Range Interpretation Code Description Data Pati rce(s) Supporting Document(s) SARS coronavirus 2 RNA Not Detected [facility] This lab was ordered by [facility] and reported by [facility]. ID Date Data Source [id number] 08/19/2020 11:30:00 AM EST [facility] Name Value Range Interpretation Code Description Data Pati rce(s) Supporting Document(s) SARS coronavirus 2 RNA Not Detected [facility] [place] This lab was ordered by [facility] and reported by [facility]. ID Date Data Source [id number] 08/12/2020 02:00:00 PM EST [facility] Name Value Range Interpretation Code Description Data Pati rce(s) Supporting Document(s) SARS coronavirus 2 RNA Not Detected [facility] [place] This lab was ordered by [facility] and reported by [facility]. ID Date Data Source [id number] 08/05/2020 10:36:00 AM EST [facility] Name Value Range Interpretation Code Description Data Pati rce(s) Supporting Document(s) SARS coronavirus 2 RNA [facility] This lab was ordered by [facility] and reported by [facility]. ID Date Data Source [id number] 07/29/2020 02:31:00 PM EST [facility] Name Value Range Interpretation Code Description Data Pati rce(s) Supporting Document(s) SARS coronavirus 2 RNA [facility] This lab was ordered by [facility] and reported by [facility]. ID Date Data Source [id number] 07/22/2020 09:15:00 AM EST [facility] Name Value Range Interpretation Code Description Data Pati rce(s) Supporting Document(s) SARS coronavirus 2 RNA [facility] This lab was ordered by [facility] and reported by [facility]. ID Date Data Source [id number] 07/15/2020 02:37:00 PM EST [facility] Name Value Range Interpretation Code Description Data Pati rce(s) Supporting Document(s) SARS coronavirus 2 RNA [facility] This lab was ordered by [facility] and reported by [facility]. ID Date Data Source [id number] 07/08/2020 02:00:00 PM EST [facility] Name Value Range Interpretation Code Description Data Pati rce(s) Supporting Document(s) SARS coronavirus 2 RNA [facility] This lab was ordered by [facility] and reported by [facility]. ID Date Data Source [id number] 07/01/2020 02:45:00 PM EST [facility] Name Value Range Interpretation Code Description Data Pati rce(s) Supporting Document(s) SARS coronavirus 2 RNA [facility] This lab was ordered by [facility] and reported by [facility]. ID Date Data Source [id number] 06/24/2020 11:42:00 AM EST [facility] Name Value Range Interpretation Code Description Data Pati rce(s) Supporting Document(s) SARS coronavirus 2 RNA [facility] This lab was ordered by [facility] and reported by [facility]. ID Date Data Source [id number] 06/17/2020 12:22:00 PM EST [facility] Name Value Range Interpretation Code Description Data Pati rce(s) Supporting Document(s) SARS coronavirus 2 RNA [facility] This lab was ordered by [facility] and reported by [facility]. ID Date Data Source [id number] 06/10/2020 02:01:00 PM EST [facility] Name Value Range Interpretation Code Description Data Pati rce(s) Supporting Document(s) SARS coronavirus 2 RNA [facility] This lab was ordered by [facility] and reported by [facility]. ID Date Data Source [id number] 06/03/2020 03:13:00 PM EDT [facility] Name Value Range Interpretation Code Description Data Pati rce(s) Supporting Document(s) SARS coronavirus 2 RNA [facility] This lab was ordered by [facility] and reported by [facility]. ID Date Data Source [id number] 05/27/2020 03:30:00 PM EDT [facility] Name Value Range Interpretation Code Description Data Pati rce(s) Supporting Document(s) SARS coronavirus 2 RNA [facility] This lab was ordered by [facility] and reported by [facility]. ID Date Data Source [id number] 05/20/2020 12:00:00 PM EDT [facility] Name Value Range Interpretation Code Description Data Pati rce(s) Supporting Document(s) SARS coronavirus 2 RNA [facility] This lab was ordered by [facility] and reported by [facility]. ID Date Data Source [id number] 05/13/2020 02:30:00 PM EDT [facility] Name Value Range Interpretation Code Description Data Pati rce(s) Supporting Document(s) SARS coronavirus 2 RNA [facility] This lab was ordered by [facility] and reported by [facility]. ID Date Data Source [id number] 05/06/2020 02:20:00 PM EDT [facility] Name Value Range Interpretation Code Description Data Pati rce(s) Supporting Document(s) SARS coronavirus 2 RNA [facility] This lab was ordered by [facility] and reported by [facility]. ID Date Data Source [id number] 04/29/2020 12:43:00 PM EDT [facility] Name Value Range Interpretation Code Description Data Pati rce(s) Supporting Document(s) SARS coronavirus 2 RNA [facility] This lab was ordered by [facility] and reported by [facility]. ID Date Data Source [id number] 04/17/2020 01:00:00 PM EDT [facility] Name Value Range Interpretation Code Description Data Pati rce(s) Supporting Document(s) SARS coronavirus 2 RNA [facility] This lab was ordered by [facility] and reported by [facility]. ID Date Data Source [id number] 04/01/2020 01:45:00 PM EDT [facility] Name Value Range Interpretation Code Description Data Pati rce(s) Supporting Document(s) SARS coronavirus 2 RNA [facility] This lab was ordered by [facility] and reported by [facility]. ID Date Data Source [id number] 02/26/2020 03:32:00 PM EDT [facility] Name Value Range Interpretation Code Description Data Pati rce(s) Supporting Document(s) SARS coronavirus 2 RNA [facility] This lab was ordered by [facility] and reported by [facility]. ID Date Data Source [id number] 02/25/2020 08:04:10 AM EDT eCW1 ([facility]ending sale to [facility]) Name Value Range Interpretation Code Description Data Pati rce(s) Supporting Document(s) 20.6 eCW1 ([facility]) ID Date Data Source CBC with Differential 02/25/2020 08:04:03 AM EDT eCW1 ([facility]) Name Value Range Interpretation Code Description Data Pati rce(s) Supporting Document(s) 4.17 RED BLOOD COUNT eCW1 ([facility]) 8.6 WHITE BLOOD COUNT eCW1 ([facility]ending [facility] to [facility]) 38.6 HEMATOCRIT eCW1 ([facility], 1928–1983) 92.6 MEAN CORPUSCULAR VOLUME eCW1 ( [facility]) 30.5 MEAN CORPUSCULAR HEMOGLOBIN eC W1 ([facility]) 12.7 HEMOGLOBIN eCW1 ([facility], 1928–1983) 32.9 MEAN CORPUSCULAR HGB CONC eCW1 ([facility]) 273 PLATELET COUNT, AUTOMATED eCW1 ([facility]) 12.3 RED CELL DISTRIBUTION WIDTH eC W1 ([facility]) 1.5 EOS % eCW1 ([facility]) 58.4 NEUTROPHILS % eCW1 ([facility]) 33.6 LYMPH % eCW1 ([facility]) 5.7 MONO % eCW1 ([facility]) 0.5 MONO # eCW1 ([facility]) 0.2 BASO % eCW1 ([facility]) 5.0 NEUTROPHILS # eCW1 ([facility]) 2.9 LYMPH # eCW1 ([facility]) 0.0 BASO # eCW1 ([facility]) 0.1 EOS # eCW1 ([facility]) ID Date Data Source [id number] 02/25/2020 08:03:57 AM EDT eCW1 ([facility]) Name Value Range Interpretation Code Description Data Pati rce(s) Supporting Document(s) Hemoglobin A1c/Hemoglobin.total in Blood 5.3 HEMOGLOBIN A1c eCW1 ([facility]) ID Date Data Source LIPID PANEL (CARDIAC RISK) 02/25/2020 08:03:52 AM EDT eCW1 ( [facility]) Name Value Range Interpretation Code Description Data Pati rce(s) Supporting Document(s) Cholesterol in HDL [Moles/volume] in Serum or Plasma 58 HDL CHOLESTEROL eCW1 ([facility]) Triglyceride [Mass/volume] in Serum or Plasma by calculation 162 TRIGLYCERIDES LEVEL eCW1 ([facility]) Cholesterol [Moles/volume] in Serum or Plasma 242 CHOLESTEROL LEVEL eCW1 ([facility]) Cholesterol in LDL [Mass/volume] in Serum or Plasma by calculation 152 LDL CHOLESTEROL eCW1 ([facility]) 184 NON-HDL-C eCW1 ([facility]) 4.172 CHOLESTEROL RISK RATIO eCW1 ([facility]) ID Date Data Source FREE T4 & TSH PANEL 02/25/2020 08:03:45 AM EDT eCW1 ([facility]) Name Value Range Interpretation Code Description Data Pati rce(s) Supporting Document(s) 0.93 FREE T4 eCW1 ([facility]) 1.710 THYROID STIMULATING HORMONE eC W1 ([facility]) ID Date Data Source Comprehensive Metabolic Profile (CMP) 02/25/2020 08:03:39 AM EDT eCW1 ([facility]) Name Value Range Interpretation Code Description Data Pati rce(s) Supporting Document(s) 87 GLUCOSE, FASTING eCW1 ([facility]) > 60.0 GLOMERULAR FILTRATION RATE eCW 1 ([facility]) 141 SODIUM LEVEL eCW1 ([facility]) 0.80 CREATININE FOR GFR eCW1 ([facility]) 14 BLOOD UREA NITROGEN eCW1 ([facility]) 8.9 CALCIUM LEVEL eCW1 ([facility]) 31 CARBON DIOXIDE LEVEL eCW1 ([facility]) 104 CHLORIDE LEVEL eCW1 ([facility]) 4.3 POTASSIUM SERUM eCW1 ([facility]) 16 AST/SGOT eCW1 ([facility]) 68 ALKALINE PHOSPHATASE eCW1 ([facility]) 29 ALT/SGPT eCW1 ([facility]) 7.3 TOTAL PROTEIN eCW1 ([facility]) 3.7 ALBUMIN eCW1 ([facility]) 0.5 BILIRUBIN,TOTAL eCW1 ([facility]) 1.0 ALBUMIN/GLOBULIN RATIO eCW1 ([facility]) ID Date Data Source [id number] 02/19/2020 03:49:00 PM EDT [facility] Name Value Range Interpretation Code Description Data Pati rce(s) Supporting Document(s) SARS coronavirus 2 RNA [facility] This lab was ordered by [facility] and reported by [facility]. ID Date Data Source [id number] 02/12/2020 03:19:00 PM EDT [facility] Name Value Range Interpretation Code Description Data Pati rce(s) Supporting Document(s) SARS coronavirus 2 RNA [facility] This lab was ordered by [facility] and reported by [facility]. ID Date Data Source [id number] 02/05/2020 05:30:00 AM EDT [facility] Name Value Range Interpretation Code Description Data Pati rce(s) Supporting Document(s) SARS CORONAVIRUS 2 RNA [facility] This lab was ordered by [facility] and reported by [facility]. ID Date Data Source [id number] 01/29/2020 05:30:00 AM EDT [facility] Name Value Range Interpretation Code Description Data Pati rce(s) Supporting Document(s) SARS CORONAVIRUS 2 RNA [facility] This lab was ordered by [facility] and reported by [facility]. ID Date Data Source [id number] 01/22/2020 11:49:00 AM EDT [facility] Name Value Range Interpretation Code Description Data Pati rce(s) Supporting Document(s) SARS CORONAVIRUS 2 RNA [facility] This lab was ordered by [facility] and reported by [facility]. ID Date Data Source [id number] 01/15/2020 01:20:00 PM EDT [facility] Name Value Range Interpretation Code Description Data Pati rce(s) Supporting Document(s) SARS CORONAVIRUS 2 RNA [facility] This lab was ordered by [facility] and reported by [facility]. ID Date Data Source [id number] 01/11/2020 02:07:00 PM EDT [facility] Name Value Range Interpretation Code Description Data Pati rce(s) Supporting Document(s) SARS CORONAVIRUS 2 RNA [facility] This lab was ordered by [facility] and reported by [facility]. ID Date Data Source [id number] 01/08/2020 03:32:00 PM EDT [facility] Name Value Range Interpretation Code Description Data Pati rce(s) Supporting Document(s) SARS CORONAVIRUS 2 RNA [facility] This lab was ordered by [facility] and reported by [facility]. ID Date Data Source [id number] 01/04/2020 03:09:00 PM EDT [facility] Name Value Range Interpretation Code Description Data Pati rce(s) Supporting Document(s) SARS CORONAVIRUS 2 RNA [facility] This lab was ordered by [facility] and reported by [facility]. ID Date Data Source [id number] 01/02/2020 01:00:00 PM EDT [facility] Name Value Range Interpretation Code Description Data Pati rce(s) Supporting Document(s) SARS CORONAVIRUS 2 RNA [facility] This lab was ordered by [facility] and reported by [facility]. ID Date Data Source [id number] 12/27/2019 03:06:00 PM EDT [facility] Name Value Range Interpretation Code Description Data Pati rce(s) Supporting Document(s) SARS CORONAVIRUS 2 RNA [facility] This lab was ordered by [facility] and reported by [facility]. ID Date Data Source [id number] 12/24/2019 05:30:00 AM EDT [facility] Name Value Range Interpretation Code Description Data Pati rce(s) Supporting Document(s) SARS CORONAVIRUS 2 RNA [facility] This lab was ordered by [facility] and reported by [facility]. Procedure Social History Code Duration Value Status Description Data Source(s ) Smoking 02/25/2020 12:00:00 AM EDT Never Smoker completed Never S momurray eCW1 ([facility]) Vital Signs ID Date Data Source UNK Name Value Range Interpretation Code Description Data Source(s) Diastolic blood pressure 84 mm[Hg] 84 mm[Hg] eCW1 ([facility]) Systolic blood pressure 116 mm[Hg] 116 mm[Hg] e CW1 ([facility]) Body temperature 97.6 [degF] 97.6 [degF] eCW1 ( [facility]) Respiratory rate 18 /min 18 /min eCW1 ([facility]) Heart rate 84 /min 84 /min eCW1 ([facility]) Body mass index (BMI) [Ratio] 48.79 kg/m2 48.79 kg/m2 eCW1 ([facility]) Body height 65 [in_i] 65 [in_i] eCW1 ([facility]) Body weight 293.2 [lb_av] 293.2 [lb_av] eCW1 ([facility]) Diastolic blood pressure 80 mm[Hg] 80 mm[Hg] eCW1 ([facility]) Systolic blood pressure 114 mm[Hg] 114 mm[Hg] e CW1 ([facility]) Body temperature 98.0 [degF] 98.0 [degF] eCW1 ( [facility]) Respiratory rate 17 /min 17 /min eCW1 ([facility]) Heart rate 94 /min 94 /min eCW1 ([facility]) Body mass index (BMI) [Ratio] 47.02 kg/m2 47.02 kg/m2 eCW1 ([facility]) Body height 65 [in_us] 65 [in_us] eCW1 ([facility]) Body weight Measured 282.6 [lb_av] 282.6 [lb_av ] eCW1 ([facility]) Diastolic blood pressure 80 mm[Hg] 80 mm[Hg] eCW1 ([facility]) Systolic blood pressure 128 mm[Hg] 128 mm[Hg] e CW1 ([facility]) Body temperature 97.5 [degF] 97.5 [degF] eCW1 ( [facility]) Respiratory rate 18 /min 18 /min eCW1 ([facility]) Heart rate 95 /min 95 /min eCW1 ([facility]) Body mass index (BMI) [Ratio] 46.82 kg/m2 46.82 kg/m2 eCW1 ([facility]) Body height 65 [in_us] 65 [in_us] eCW1 ([facility]) Body weight Measured 281.4 [lb_av] 281.4 [lb_av ] eCW1 ([facility]) Patient Treatment Plan of Care Planned Activity Planned Date Details Description Data Source (s) Cholecalciferol 1000 UNT Oral Tablet 02/25/2020 12:00:00 AM EDT eCW1 ([facility]) December Have - 02/25/2020 12:00:00 AM EDT e CW1 ([facility])
[2020-09-02 21:36] VITALS: BP 140/86
== END 2020-09-02 21:37 | disposition home or self-care (01) ==
LOC: M ED 19:32
DX: R06.02 Shortness of breath (principal); R05 Cough; R51.9 Headache, unspecified; R11.0 Nausea; T50.Z95A Adverse effect of other vaccines and biological substances, initial encounter; I10 Essential (primary) hypertension; F33.9 Major depressive disorder, recurrent, unspecified; F41.9 Anxiety disorder, unspecified; Z79.899 Other long term (current) drug therapy

== ENCOUNTER → 2020-12-18 | Outpatient (REF) | payer BC ==
[~2020-12-18] MED LIST changes: +ESCI10TA16 PO; +LABE100T4 PO; +METF-838 PO
[2020-12-18 17:28] LABS: BASO % 0.2 % (0.0-1.0); EOS # 0.1 10^3/uL (0.0-0.5); EOS % 1.3 % (0.0-3.0); HEMATOCRIT 38.2 % (36.0-47.0); HEMOGLOBIN 12.6 g/dl (12.0-15.5); LYMPH # 3.1 10^3/uL (1.5-5.0); LYMPH % 30.2 % (24.0-44.0); MEAN CORPUSCULAR HEMOGLOBIN 30.5 pg (27.0-33.0); MEAN CORPUSCULAR VOLUME 92.5 fl (80.0-96.0); MONO # 0.5 10^3/uL (0.0-0.8); MONO % 4.9 % (2.0-8.0); NEUTROPHILS # 6.6 10^3/uL (1.5-8.5); PLATELET COUNT, AUTOMATED 262 10^3/uL (150-450); RED BLOOD COUNT 4.13 10^6/uL (4.00-5.40); WHITE BLOOD COUNT 10.4 10^3/uL (4.0-10.0)
[2020-12-18 17:31] LABS: HEMOGLOBIN A1c 5.4 %
[2020-12-18 17:49] LABS: ALBUMIN 3.9 GM/DL (3.2-5.2); ALT/SGPT 34 U/L (12-78); BILIRUBIN,TOTAL 0.3 MG/DL (0.2-1.0); BLOOD UREA NITROGEN 14 MG/DL (7-18); CALCIUM LEVEL 9.5 MG/DL (8.5-10.1); CARBON DIOXIDE LEVEL 29 MEQ/L (21-32); CHLORIDE LEVEL 106 MEQ/L (98-107); CHOLESTEROL LEVEL 246 MG/DL (<200); CHOLESTEROL RISK RATIO 3.784 (<5); GLOMERULAR FILTRATION RATE > 60.0 (>60); GLUCOSE, FASTING 98 MG/DL (70-100); HDL CHOLESTEROL 65 MG/DL (>40); LDL CHOLESTEROL 132 MG/DL (<100); NON-HDL-C 181 MG/DL; POTASSIUM SERUM 4.3 MEQ/L (3.5-5.1); SODIUM LEVEL 141 MEQ/L (136-145); TOTAL PROTEIN 7.7 GM/DL (6.4-8.2); TRIGLYCERIDES LEVEL 247 MG/DL (<150)
[2020-12-18 17:52] LABS: PTH INTACT 28.5 PG/ML (18.5-88.0); TOTAL 25(OH) VITAMIN D 17.1 NG/ML (30.0-100.0)
== END ==
LOC: M SFHCPLAZ 15:38
PROVIDERS: ATTEND Physician Assistant Medical
DX: E55.9 Vitamin D deficiency, unspecified (principal); E28.2 Polycystic ovarian syndrome; Z12.11 Encounter for screening for malignant neoplasm of colon; E78.2 Mixed hyperlipidemia

== ENCOUNTER → 2021-12-08 | Outpatient (REF) | LOC: M EMP 11:28 | PROVIDERS: ATTEND Family Medicine | DX: Z11.52 Encounter for screening for COVID-19 (principal) ==

== ENCOUNTER → 2022-02-25 | Outpatient (CLI) | payer BC ==
[2022-02-25 16:42] LABS: BASO % 0.1 % (0.0-1.0); EOS # 0.1 10^3/uL (0.0-0.5); EOS % 1.7 % (0.0-3.0); HEMATOCRIT 39.4 % (36.0-47.0); HEMOGLOBIN 12.8 g/dl (12.0-15.5); LYMPH # 2.3 10^3/uL (1.5-5.0); LYMPH % 31.7 % (24.0-44.0); MEAN CORPUSCULAR HEMOGLOBIN 30.3 pg (27.0-33.0); MEAN CORPUSCULAR HGB CONC 32.5 g/dl (32.0-36.5); MEAN CORPUSCULAR VOLUME 93.1 fl (80.0-96.0); MONO # 0.4 10^3/uL (0.0-0.8); MONO % 5.8 % (2.0-8.0); NEUTROPHILS # 4.4 10^3/uL (1.5-8.5); NEUTROPHILS % 60.4 % (36.0-66.0); PLATELET COUNT, AUTOMATED 260 10^3/uL (150-450); RED BLOOD COUNT 4.23 10^6/uL (4.00-5.40); WHITE BLOOD COUNT 7.2 10^3/uL (4.0-10.0)
[2022-02-25 17:16] LABS: ALBUMIN 4.1 GM/DL (3.2-5.2); ALT/SGPT 32 U/L (12-78); BILIRUBIN,TOTAL 0.6 MG/DL (0.2-1.0); BLOOD UREA NITROGEN 15 MG/DL (7-18); CALCIUM LEVEL 9.7 MG/DL (8.5-10.1); CARBON DIOXIDE LEVEL 25 MEQ/L (21-32); CHLORIDE LEVEL 110 MEQ/L (98-107); CHOLESTEROL LEVEL 248 MG/DL (<200); CHOLESTEROL RISK RATIO 3.875 (<5); CREATININE FOR GFR 1.07 MG/DL (0.55-1.30); FREE T4 0.84 NG/DL (0.76-1.46); GLOMERULAR FILTRATION RATE > 60.0 (>60); GLUCOSE, FASTING 96 MG/DL (70-100); HDL CHOLESTEROL 64 MG/DL (>40); LDL CHOLESTEROL 152 MG/DL (<100); NON-HDL-C 184 MG/DL; POTASSIUM SERUM 4.2 MEQ/L (3.5-5.1); SODIUM LEVEL 141 MEQ/L (136-145); TOTAL PROTEIN 7.4 GM/DL (6.4-8.2); TRIGLYCERIDES LEVEL 158 MG/DL (<150)
[2022-02-25 17:45] LABS: TOTAL 25(OH) VITAMIN D 27.2 NG/ML (30.0-100.0)
[2022-02-25 20:47] LABS: HEMOGLOBIN A1c 5.3 %
== END ==
LOC: M PLALAB 13:27
PROVIDERS: ATTEND Physician Assistant Medical
DX: E78.2 Mixed hyperlipidemia (principal); E66.9 Obesity, unspecified; L71.9 Rosacea, unspecified

== ENCOUNTER → 2022-05-04 | Outpatient (REF) ==
[~2022-05-04] MED LIST changes: -LABE100T4 PO; +LABE100T6 PO
== END ==
LOC: M EMP 14:10
PROVIDERS: ATTEND Family Medicine
DX: Z20.822 Contact with and (suspected) exposure to COVID-19 (principal)

== ENCOUNTER → 2022-10-22 | Outpatient (CLI) | payer BC ==
[2022-10-22 13:48] LABS: BASO % 0.1 % (0.0-1.0); EOS # 0.1 10^3/uL (0.0-0.5); EOS % 1.7 % (0.0-3.0); HEMATOCRIT 38.1 % (36.0-47.0); HEMOGLOBIN 12.4 g/dl (12.0-15.5); LYMPH # 2.7 10^3/uL (1.5-5.0); LYMPH % 38.2 % (24.0-44.0); MEAN CORPUSCULAR HGB CONC 32.5 g/dl (32.0-36.5); MONO # 0.5 10^3/uL (0.0-0.8); MONO % 6.3 % (2.0-8.0); NEUTROPHILS # 3.8 10^3/uL (1.5-8.5); NEUTROPHILS % 53.1 % (36.0-66.0); PLATELET COUNT, AUTOMATED 293 10^3/uL (150-450); RED BLOOD COUNT 4.14 10^6/uL (4.00-5.40); WHITE BLOOD COUNT 7.2 10^3/uL (4.0-10.0)
[2022-10-22 15:58] LABS: HEMOGLOBIN A1c 5.2 % (4.0-6.0)
[2022-10-22 16:24] LABS: ALBUMIN 3.8 G/DL (3.2-5.2); ALKALINE PHOSPHATASE 68 U/L (46-116); ALT/SGPT 31 U/L (7.0-40); AST/SGOT 25 U/L (<34); BILIRUBIN,TOTAL 0.6 MG/DL (0.3-1.2); BLOOD UREA NITROGEN 14 MG/DL (9-23); CARBON DIOXIDE LEVEL 28 MMOL/L (20-31); CHLORIDE LEVEL 102 MMOL/L (98-107); CHOLESTEROL LEVEL 236 MG/DL (<200); CHOLESTEROL RISK RATIO 3.54 (<5); CREATININE FOR GFR 0.78 MG/DL (0.55-1.30); FREE T4 0.97 NG/DL (0.89-1.76); GLOMERULAR FILTRATION RATE > 60.0 (>60); GLUCOSE, FASTING 88 MG/DL (60-100); HDL CHOLESTEROL 66.6 MG/DL (>40); NON-HDL-C 169.4 MG/DL; PTH INTACT 53.8 PG/ML (18.5-88.0); SODIUM LEVEL 138 MMOL/L (136-145); THYROID STIMULATING HORMONE 1.976 uIU/ML (0.55-4.78); TOTAL 25(OH) VITAMIN D 24.3 NG/ML (20.0-100.0)
[2022-10-22 18:38] LABS: TOTAL PROTEIN 6.9 G/DL (5.7-8.2); TRIGLYCERIDES LEVEL 147 MG/DL (<150)
== END ==
LOC: M PLALAB 10:56
PROVIDERS: ATTEND Physician Assistant Medical
DX: E28.2 Polycystic ovarian syndrome (principal); E55.9 Vitamin D deficiency, unspecified; E78.2 Mixed hyperlipidemia; M25.471 Effusion, right ankle; E66.9 Obesity, unspecified

== ENCOUNTER → 2023-05-16 | Outpatient (REF) | payer BC | LOC: M SFHCPLAZ 17:01 | PROVIDERS: ATTEND Physician Assistant Medical | DX: J02.9 Acute pharyngitis, unspecified (principal) ==

== ENCOUNTER → 2023-11-20 | Outpatient (REF) | payer BC | LOC: M LAB 18:16 | PROVIDERS: ATTEND Physician Assistant Medical | DX: B34.9 Viral infection, unspecified (principal) ==

== ENCOUNTER 2024-01-12 19:36 | Emergency (ER) | payer BC ==
[~2024-01-12] VITALS: Ht 165.1 cm; Wt 137.6 kg
[2024-01-12 19:36] VITALS: BP 169/94; TEMP 97.1; O2SAT 100
== END 2024-01-12 22:00 | disposition left against medical advice (07) ==
LOC: M ED 19:36
DX: Z53.21 Procedure and treatment not carried out due to patient leaving prior to being seen by health care provider (principal)